=== PATIENT | female | born 1980 | race African-American/Black ===

== ENCOUNTER 2016-09-04 00:03 | Emergency (ER) | payer OTHER ==
[~2016-09-04] VITALS: Ht 167.6 cm; Wt 104.3 kg
[~2016-09-04 00:03] MED LIST: ACCURETIC 10-11 EACH PO; APAP500; ARTHROTEC 75 T1 EAC1 PO; BACTRIM DS TAB1 EACH PO; BACTROBAN22 GM TP; CORTISPORIN OTI10 ML OTIC; DEPAKOTE 250MG250 M1 PO; DILANTIN100 MG PO; HYDROCHLOROTHIA25 M1 PO; HYDROCHLOROTHIA25 M2 PO; IBUPROFEN 200200 M1 PO; IBUPROFEN 600600 M1; IBUPROFEN 800800 MG PO; IRON325 PO; KEFLEX500 MG PO; LEVAQUIN 500 M500 M2 PO; LISINOPRIL5 MG PO; NEXIUM40 M2 PO; NORCO 5-325 TA1 EACH PO; PAXIL10 MG; PHENYTOIN SODI100 M3 PO; PRINZIDE 20-251 EACH PO; PROMETHAZINE-C120 ML PO; SYMBICORT160 MCG/4. INH; TYLENOL325 MG PO; VENTOLIN HFA 1818 GM INH; ZPAK PO
== END 2016-09-04 00:40 | disposition home or self-care (01) ==
LOC: ER 00:03
DX: M25.562 Pain in left knee (principal); I10 Essential (primary) hypertension; Z88.6 Allergy status to analgesic agent; F17.210 Nicotine dependence, cigarettes, uncomplicated; F10.99 Alcohol use, unspecified with unspecified alcohol-induced disorder

== ENCOUNTER 2016-09-23 17:53 | Emergency (ER) | payer OTHER ==
[~2016-09-23] VITALS: Ht 167.6 cm; Wt 106.6 kg
--- NOTE | ~2016-09-23 | EKG ---
[address] [email or web address] [address] ELECTROCARDIOGRAM REPORT Name: RUPERTO WARREN Room #: DEP [facility] [id number] Admission: 09/23/16 Attend Phys: Discharge: 09/23/16 Date of : 84 Report #: [id number] THIS REPORT FOR: //name// [facility] ED Test Date: 2016-09-23 Test Time: 19:17:53 Pat Name: RUPERTO WARREN Department: Room: Gender: F [employer]: [employer] : 1980 Requested By: Eusebio Monsalve Order Number: [id number] MD: Gonzalez Camp Measurements Intervals [place] Rate: 89 P: 9 ID: 155 QRS: 20 QRSD: 91 T: 36 QT: 353 QTc: 430 Interpretive Statements Sinus rhythm Normal tracing No previous ECG available for comparison Electronically Signed On 09-24-2016 7:43:02 CDT by Gonzalez Camp [email or web address] <ELECTRONICALLY SIGNED> By: Gonzalez Camp MD, [facility] 09/24/16 0743 [id number] Gonzalez Camp MD, FACC /EPI
[2016-09-23 19:46] LABS: ABSOLUTE NEUTROPHILS 7.8 thou/uL (1.4-8.2); EOSINOPHILS 0.7 % (0.0-3.0); HEMATOCRIT 27.5 % (37.0-47.0); HEMOGLOBIN 8.8 gm/dL (12.0-15.0); LYMPHOCYTES 19.9 % (24.0-44.0); MCH 23.6 pg (26.0-34.0); MCHC 32.1 g/dL (28.0-37.0); MCV 73.5 fL (80.0-100.0); PLATELET COUNT 272 thou/uL (150-400); POLYS 71.4 % (36.0-66.0); RBC 3.74 mil/uL (4.20-5.00); RDW 17.7 % (10.5-14.5); WBC 10.9 thou/uL (4.0-11.0)
[2016-09-23 19:49] LABS: MANUAL DIFF NO
[2016-09-23 20:11] LABS: CALCIUM 8.2 mg/dL (8.5-10.1); POTASSIUM 3.7 mmol/L (3.5-5.1)
[2016-09-23 20:15] LABS: ALBUMIN 3.2 g/dL (3.4-5.0); TOTAL BILIRUBIN 0.1 mg/dL (<0.1-1.0); TOTAL PROTEIN 7.1 g/dL (6.4-8.2)
[2016-09-23] MEDS ORDERED: INDOMETHACIN 2525 MG PO (20:25)
[2016-09-23] MEDS ORDERED: TESSALON PERLE100 MG PO (20:25)
[2016-09-23] MEDS ORDERED: VENTOLIN HFA 1818 GM INH (20:25)
[2016-09-23] MEDS ORDERED: HYDROCHLOROTHIA25 M2 PO (20:28)
[2016-09-23] MEDS ORDERED: DILANTIN100 MG PO (20:28)
== END 2016-09-23 20:35 | disposition home or self-care (01) ==
LOC: ER 17:53
PROVIDERS: Emergency Medicine
DX: J20.8 Acute bronchitis due to other specified organisms (principal); R42 Dizziness and giddiness; I10 Essential (primary) hypertension; F17.210 Nicotine dependence, cigarettes, uncomplicated; Z85.42 Personal history of malignant neoplasm of other parts of uterus; Z86.2 Personal history of diseases of the blood and blood-forming organs and certain disorders involving the immune mechanism; Z88.6 Allergy status to analgesic agent

== ENCOUNTER 2016-10-07 23:42 | Emergency (ER) | payer OTHER ==
[~2016-10-07] VITALS: Ht 170.2 cm; Wt 104.3 kg
[~2016-10-07 23:42] MED LIST changes: +INDOMETHACIN 2525 MG PO; +TESSALON PERLE100 MG PO
[2016-10-08 00:54] LABS: URINE BILIRUBIN NEGATIVE (Negative); URINE BLOOD 2+ (Negative); URINE COLOR YELLOW; URINE GLUCOSE-RANDOM* NEGATIVE (Negative); URINE KETONES NEGATIVE (Negative); URINE LEUKOCYTES-REFLEX NEGATIVE (Negative); URINE PROTEIN (DIPSTICK) NEGATIVE (Negative); URINE SPECIFIC GRAVITY 1.025 (1.003-1.035); URINE UROBILINOGEN 0.2 E.U./dl (0.2-1.0)
[2016-10-08 01:02] LABS: CALCIUM 8.7 mg/dL (8.5-10.1); CREATININE 1.2 mg/dL (0.6-1.0); POTASSIUM 3.2 mmol/L (3.5-5.1)
[2016-10-08 01:06] LABS: ALBUMIN 3.5 g/dL (3.4-5.0); TOTAL BILIRUBIN 0.2 mg/dL (<0.1-1.0); TOTAL PROTEIN 7.7 g/dL (6.4-8.2)
[2016-10-08 01:12] LABS: CASTS None Seen /LPF (None Seen); CRYSTALS None Seen /LPF (None Seen); SQUAMOUS >10 Many /LPF (0-3)
[2016-10-08 01:13] LABS: URINE WBC-REFLEX 0-5 Rare /HPF (0-5)
== END 2016-10-08 02:49 | disposition home or self-care (01) ==
LOC: ER 23:42
PROVIDERS: Emergency Medicine
DX: R56.9 Unspecified convulsions (principal); I10 Essential (primary) hypertension; Z85.42 Personal history of malignant neoplasm of other parts of uterus; F17.210 Nicotine dependence, cigarettes, uncomplicated; Z86.2 Personal history of diseases of the blood and blood-forming organs and certain disorders involving the immune mechanism; Z88.6 Allergy status to analgesic agent

== ENCOUNTER 2016-11-14 18:36 | Emergency (ER) | payer OTHER ==
[~2016-11-14] VITALS: Ht 175.3 cm; Wt 111.1 kg
--- NOTE | ~2016-11-14 | EKG ---
[address] [place] [employer] [place] [address] ELECTROCARDIOGRAM REPORT Name: RUPERTO WARREN Room #: DEP [facility]AD[facility] [id number] Admission: 11/14/16 Attend Phys: Discharge: 11/14/16 Date of : 84 Report #: [id number] THIS REPORT FOR: //name// [facility] ED Test Date: 2016-11-14 Test Time: 18:57:40 Pat Name: RUPERTO WARREN Department: Room: Gender: F [employer] Representative: MAIKEL ESTRELLA : 1980 Requested By: Shad Chandra Order Number: [id number] MD: Sarwat Varela Measurements Intervals [place] Rate: 97 P: 28 VT: 150 QRS: 9 QRSD: 93 T: 1 QT: 349 QTc: 444 Interpretive Statements Sinus rhythm Low voltage, precordial leads Borderline T abnormalities, diffuse leads Compared to ECG 09/23/2016 19:17:53 Low QRS voltage now present T-wave abnormality now present Electronically Signed On 11-14-2016 21:02:30 CDT by Sarwat Varela [email or web address] <ELECTRONICALLY SIGNED> By: Sarwat Varela MD 11/14/16 2102 [id number] 56 Sarwat Varela MD /EPI
[2016-11-14 19:15] LABS: HEMATOCRIT 28.1 % (37.0-47.0); HEMOGLOBIN 8.8 gm/dL (12.0-15.0); MCH 22.7 pg (26.0-34.0); MCHC 31.2 g/dL (28.0-37.0); MCV 72.8 fL (80.0-100.0); RBC 3.86 mil/uL (4.20-5.00); RDW 17.8 % (10.5-14.5); WBC 7.4 thou/uL (4.0-11.0)
[2016-11-14 19:30] LABS: CALCIUM 8.7 mg/dL (8.5-10.1); CREATININE 1.1 mg/dL (0.6-1.0); POTASSIUM 3.8 mmol/L (3.5-5.1)
[2016-11-14 19:35] LABS: ALBUMIN 3.2 g/dL (3.4-5.0); TOTAL BILIRUBIN 0.2 mg/dL (<0.1-1.0); TOTAL PROTEIN 7.3 g/dL (6.4-8.2)
[2016-11-14 19:37] LABS: URINE BILIRUBIN NEGATIVE (Negative); URINE BLOOD 2+ (Negative); URINE COLOR YELLOW; URINE GLUCOSE-RANDOM* NEGATIVE (Negative); URINE KETONES NEGATIVE (Negative); URINE NITRITE NEGATIVE (Negative); URINE PROTEIN (DIPSTICK) NEGATIVE (Negative); URINE SPECIFIC GRAVITY 1.025 (1.003-1.035); URINE UROBILINOGEN 0.2 E.U./dl (0.2-1.0)
[2016-11-14 19:42] LABS: SQUAMOUS 4-10 Moderate /LPF (0-3)
[2016-11-14 19:43] LABS: CASTS None Seen /LPF (None Seen); URINE RBC 3-10 Few /HPF (0-2); URINE WBC 0-5 Rare /HPF (0-5)
[2016-11-14 19:44] LABS: CRYSTALS None Seen /LPF (None Seen)
== END 2016-11-14 20:19 | disposition home or self-care (01) ==
LOC: ER 18:36
PROVIDERS: Physician Assistant
DX: G43.909 Migraine, unspecified, not intractable, without status migrainosus (principal); R06.02 Shortness of breath; I10 Essential (primary) hypertension; G40.409 Other generalized epilepsy and epileptic syndromes, not intractable, without status epilepticus; F17.210 Nicotine dependence, cigarettes, uncomplicated; Z88.6 Allergy status to analgesic agent; Z86.2 Personal history of diseases of the blood and blood-forming organs and certain disorders involving the immune mechanism; Z85.42 Personal history of malignant neoplasm of other parts of uterus

== ENCOUNTER 2019-03-02 17:24 | Emergency (ER) | payer OTHER ==
[~2019-03-02] VITALS: Ht 167.6 cm; Wt 93.9 kg
[2019-03-02] MEDS ORDERED: HYDROCHLOROTHIA25 M2 PO (18:39)
[2019-03-02] MEDS ORDERED: LISINOPRIL40 MG PO (18:39)
[2019-03-02 18:44] VITALS: BP 140/95
== END 2019-03-02 18:45 | disposition home or self-care (01) ==
LOC: ER 17:24
DX: L02.426 Furuncle of left lower limb (principal); I10 Essential (primary) hypertension; F17.210 Nicotine dependence, cigarettes, uncomplicated; Z86.2 Personal history of diseases of the blood and blood-forming organs and certain disorders involving the immune mechanism; Z88.6 Allergy status to analgesic agent

== ENCOUNTER 2019-04-10 21:35 | Emergency (ER) | payer OTHER ==
[~2019-04-10] VITALS: Ht 167.6 cm; Wt 93.0 kg
[~2019-04-10 21:35] MED LIST changes: +LISINOPRIL40 MG PO
[2019-04-10 21:37] VITALS: BP 117/81
[2019-04-10 22:15] LABS: HEMATOCRIT 30.2 % (37.0-47.0); HEMOGLOBIN 9.4 gm/dL (12.0-15.0); MCH 24.5 pg (26.0-34.0); MCHC 31.2 g/dL (28.0-37.0); MCV 78.3 fL (80.0-100.0); RBC 3.85 mil/uL (4.20-5.00); WBC 8.4 thou/uL (4.0-11.0)
[2019-04-10 22:18] LABS: CALCIUM 8.7 mg/dL (8.5-10.1); CREATININE 1.2 mg/dL (0.6-1.0); POTASSIUM 3.6 mmol/L (3.5-5.1)
[2019-04-10] MEDS ORDERED: MOBIC15 MG PO (22:51)
== END 2019-04-10 23:24 | disposition home or self-care (01) ==
LOC: ER 21:35
PROVIDERS: Emergency Medicine
DX: G56.21 Lesion of ulnar nerve, right upper limb (principal); I10 Essential (primary) hypertension; F17.210 Nicotine dependence, cigarettes, uncomplicated; Z86.2 Personal history of diseases of the blood and blood-forming organs and certain disorders involving the immune mechanism; Z88.6 Allergy status to analgesic agent; Z88.8 Allergy status to other drugs, medicaments and biological substances; Z86.018 Personal history of other benign neoplasm